=== PATIENT | male | born 1955 | race Caucasian/White ===

== ENCOUNTER 2019-06-06 13:08 | Emergency (ER) | payer OTHER ==
[2019-06-06] MEDS: Tetan/Diph/Pertus SYR(Tdap)* 0.5 ML SYR(BOOSTRIX) use SYR contains LATEX IM ONE (16:29)
--- NOTE | 2019-06-06 16:31 | ED ---
Upper Extremity Pain - HPI Summary HPI Summary: Patient is a 63-year-old male who presents emergency department for possible foreign body to his left arm. Patient states he was working with metal today when a piece of metal struck his left arm. Patient reportedly was seen at well now prior to arrival and sent to the ER for evaluation of foreign body. Patient is unaware of his last tetanus immunization. Symptoms are mild in severity. No current modifying factors. - History of Current Complaint Chief Complaint: EDLacSutureRecheck Stated Complaint: METAL PIECE IN LT FOREARM PER PT Time Seen by Provider: 06/06/19 15:03 Hx Obtained From: Patient - Allergies/Home Medications Allergies/Adverse Reactions: Allergies Allergy/AdvReac Type Severity Reaction Status Date / Time No Known Allergies Allergy Verified 07/06/14 14:15 PMH/Surg Hx/FS Hx/Imm Hx Previously Healthy: Yes Infectious Disease History: No Infectious Disease History: Denies: Traveled Outside the [place] in Last 30 Days - Social History Alcohol Use: Daily Substance Use Type: Reports: None Smoking Status (MU): Former Smoker Review of Systems Positive: Other - Pain and swelling to left forearm. Positive: Bruising Neurological: Negative Negative: Weakness, Paresthesia, Numbness All Other Systems Reviewed And Are Negative: Yes Physical Exam Triage Information Reviewed: Yes Vital Signs On Initial Exam: Initial Vitals Temp Pulse Resp BP Pulse Ox 98.4 F 67 18 155/86 97 06/06/19 13:16 06/06/19 13:16 06/06/19 13:16 06/06/19 13:16 06/06/19 13:16 Vital Signs Reviewed: Yes Skin: Positive: Warm, Dry Head/Face: Positive: Normal Head/Face Inspection Eyes: Positive: Normal, EOMI Neck: Positive: Supple Musculoskeletal: Positive: Other - Small area of localized edema noted to left mid forearm on the dorsal aspect. Full ROM of wrist and hand. Neurological: Positive: Normal, CN Intact II-III Psychiatric: Positive: Affect/Mood Appropriate Procedures - Procedure Summary Procedure Summary: FB removal: Small puncture wound to left forearm on the anterior lateral aspect. Area was cleaned with betadine. 1% lidocaine used to anesthetize the area. A 0.5cm incision was made over puncture wound. Wound explored superficially and no foreign body was identified. Area cleaned and dressed with sterile dressing. Pt. tolerated well. - Sedation Patient Received Moderate/Deep Sedation with Procedure: No Diagnostics - Vital Signs Vital Signs Temp Pulse Resp BP Pulse Ox 06/06/19 13:16 98.4 F 67 18 155/86 97 - Laboratory Lab Statement: Any lab studies that have been ordered have been reviewed, and results considered in the medical decision making process. Course/Dx - Course Course Of Treatment: Pt. with a small, superficial peice of metal to left arm confirmed on xray. Tetanus updated. Pt. would like metal to be attempted to be removed. Pt. has small opening where metal entered. Attempted to remove metal as noted above with slightly increasing opening without success. Will place on keflex. Advised to f.u with ortho within one week. To keep area clean and dry. To return to ER for redness, swelling, drainage or if concerned. Pt. understands and agrees with plan. - Diagnoses Provider Diagnoses: Foreign body (FB) in soft tissue, Puncture wound Discharge ED - Sign-Out/Discharge Documenting (check all that apply): Patient Departure - Discharge Plan Condition: Good Disposition: HOME Prescriptions: Cephalexin CAP* [Keflex CAP*] 500 mg PO BID #20 cap Cephalexin CAP* [Keflex CAP*] 500 mg PO BID #20 cap Patient Education Materials: Soft Tissue Foreign Body (ED) Referrals: Stacie Cody MD [Primary Care Provider] - Sariah Barber MD [Medical Doctor] - Additional Instructions: Schedule a follow up appointment with the orthopedic clinic within one week Take antibiotics as directed Keep area clean and dry Ice and elevate intermittently Tylenol or Motrin for pain as directed Return to ER for redness, swelling, drainage or if concerned - Billing Disposition and Condition Condition: GOOD Disposition: Home
[2019-06-06] MEDS: Lidocaine 1% MPF ** 5 ML VIAL INJ ONE (16:32)
[2019-06-06 18:00] VITALS: BP 129/75
== END 2019-06-06 17:59 | disposition home or self-care (01) ==
LOC: ED 13:08
DX: S40.852A Superficial foreign body of left upper arm, initial encounter (principal); Z23 Encounter for immunization; X58.XXXA Exposure to other specified factors, initial encounter; Y92.89 Other specified places as the place of occurrence of the external cause; Y99.0 Civilian activity done for income or pay; Z87.891 Personal history of nicotine dependence
CPT/HCPCS: 90471; 90715; 99282